=== PATIENT | female | born 1965 | race Caucasian/White ===

== ENCOUNTER → 2023-04-06 | Outpatient (CLI) | payer OTHER ==
--- NOTE | 2023-04-06 18:02 | XR ---
EXAMINATION TYPE: XR lumbar spine 2 or 3V DATE OF EXAM: 04/06/2023 CLINICAL HISTORY: pain TECHNIQUE: Three views of the lumbar spine are submitted. COMPARISON: None. FINDINGS: There are 5 lumbar type vertebral bodies identified. The lumbar spine shows satisfactory alignment w ithout evidence of acute fracture or dislocation. Vertebral body heights are within normal limits. Mild multilevel displacement with endplate sclerosis. The overlying soft tissue appears unremarkable . IMPRESSION: 1. No acute fracture or dislocation is seen in the lumbar spine. 2. Mild multilevel degenerative disc disease.
== END | disposition home or self-care (01) ==
LOC: RADXRMAIN 17:38
PROVIDERS: ATTEND Emergency Medicine
DX: S39.012A Strain of muscle, fascia and tendon of lower back, initial encounter (principal); M51.36 Other intervertebral disc degeneration, lumbar region; X58.XXXA Exposure to other specified factors, initial encounter
CPT/HCPCS: 72100

== ENCOUNTER 2024-06-09 02:58 | Emergency (ER) | payer OTHER ==
--- NOTE | 2024-06-09 03:34 | ED ---
Allergic Reaction HPI - General Chief complaint: Allergic Reaction Stated complaint: Animal Scratch, Lip Swelling Time Seen by Provider: 06/09/24 03:12 Source: patient Mode of arrival: ambulatory Limitations: no limitations - History of Present Illness Initial Comments: Patient is a previous healthy 59-year-old female presenting today for lip swelling. States that she was scratched on the lip by her pet squirrel last night at 7 PM and began noticing lip swelling. Tried to go to sleep and woke up with her lip more swollen. Does not take any medications every day. No medications prior to arrival. States only other new exposure was 2 nights ago she ate spinach cooked with [employer] seasonings and did have itching the following night, waking up yesterday morning with itching. Additionally was doing yard work outside 2 days ago and was bit by amina's on the left hip and did have hives from this. Otherwise denies any new hives, any sensation of difficulty in breathing, tongue swelling, throat swelling, shortness of breath, chest pain, abdominal pain, nausea, vomiting, diarrhea. Denies any history of allergies. No recent fevers or chills. - Related Data Previous Rx's Medication Instructions Recorded predniSONE [Deltasone] 40 mg PO DAILY #8 tab 06/09/24 Allergies Allergy/AdvReac Type Severity Reaction Status Date / Time No Known Allergies Allergy Verified 06/09/24 02:59 Review of Systems ROS Statement: Those systems with pertinent positive or pertinent negative responses have been documented in the HPI. ROS Other: All systems not noted in ROS Statement are negative. Past Medical History Past Medical History: No Reported History History of Any Multi-Drug Resistant Organisms: None Reported Past Surgical History: Section Past Psychological History: No Psychological Hx Reported Smoking Status: Current every day smoker Past Alcohol Use History: None Reported Past Drug Use History: None Reported General Exam - General Exam Comments Initial Comments: PE: CONSTITUTIONAL: [no apparent distress, well appearing] SKIN: [warm, dry, no jaundice, hives or petechiae] EYES:[ pupils are equally round, extraocular movements intact without nystagmus, clear conjunctiva, non-icteric sclera] HENT: [normocephalic, atraumatic, moist mucus membranes, oropharynx clear without exudates, no uvular swelling, no oropharyngeal edema, no tongue swelling, lower lip is mildly edematous] NECK: , [Full range of motion, normal appearance] PULMONARY: [clear to auscultation without wheezes, rhonchi, or rales, normal excursion, no accessory muscle use and no stridor] CARDIOVASCULAR:[ regular rate, rhythm, normal S1 and S2. No appreciated murmurs, rubs or gallops. Strong radial pulses with intact distal perfusion. No lower extremity edema] GASTROINTESTINAL: [soft, active bowel sounds throughout, non-tender, non- distended, no palpable masses, no rebound or guarding. No hepatosplenomegaly] GENITOURINARY: MUSCULOSKELETAL: [Extremities have no gross deformity, no edema, redness, or swelling. ] NEUROLOGIC: [_a/o x 3, GCS 15, normal mentation and speech. Moves all extremities x 4 without motor or sensory deficit] PSYCHIATRIC:[ _normal mood and affect, thought process is clear and linear] Limitations: no limitations Course Vital Signs 06/09/24 06/09/24 06/09/24 02:59 04:21 06:39 Temperature 97.9 F 97.6 F Pulse Rate 94 73 65 Respiratory 19 16 16 Rate Blood Pressure 116/76 109/77 107/72 O2 Sat by Pulse 98 98 95 Oximetry Medical Decision Making - Medical Decision Making Was pt. sent in by a medical professional or institution ([facility], PORTABLE POWER TOOL REPAIRER, urgent care, hospital, or half-way...) When possible be specific @ -[No] Did you speak to anyone other than the patient for history (EMS, parent, family, police, friend...)? What history was obtained from this source @ -[No] Did you review nursing and triage notes (agree or disagree)? Why? @ -[I reviewed and agree with nursing and triage notes] Were old charts reviewed (outside hosp., previous admission, EMS record, old EKG, old radiological studies, urgent care reports/EKG's, half-way records)? Report findings @ -[No old charts were reviewed] Differential Diagnosis (chest pain, altered mental status, abdominal pain women, abdominal pain men, vaginal bleeding, weakness, fever, dyspnea, syncope, headache, dizziness, GI bleed, back pain, seizure, CVA, palpatations, mental health, musculoskeletal)? @ -[not applicable] EKG interpreted by me (3pts min.). @ -[As above] X-rays interpreted by me (1pt min.). @ -[None done] CT interpreted by me (1pt min.). @ -[None done] U/S interpreted by me (1pt. min.). @ -[None done] What testing was considered but not performed or refused? (CT, X-rays, U/S, labs)? Why? @ -[None] What meds were considered but not given or refused? Why? @ -[None] Did you discuss the management of the patient with other professionals (professionals i.e. , PA, PORTABLE POWER TOOL REPAIRER, lab, RT, psych nurse, social services specialist, lawyer criminal, teacher, state highway police officer, assistant case manager)? Give summary @ -[No] Was smoking cessation discussed for >3mins.? @ -[No] Was critical care preformed (if so, how long)? @ -[No] Were there social determinants of health that impacted care today? How? (Homelessness, low income, unemployed, alcoholism, drug addiction, transportation, low edu. Level, literacy, decrease access to med. care, prison, rehab)? @ -[No] Was there de-escalation of care discussed even if they declined (Discuss DNR or withdrawal of care, Hospice)? @ -[No] What co-morbidities impacted this encounter? (DM, HTN, Smoking, COPD, CAD, Cancer, CVA, ARF, Chemo, Hep., AIDS, mental health diagnosis, sleep apnea, morbid obesity)? @ -[None] Was patient admitted / discharged? Hospital course, mention meds given and route, prescriptions, significant lab abnormalities, going to OR and other pertinent info. @ -Discharged- On reassessment patient's lip swelling has improved. No tongue swelling, no REGI. Patient comfortable with discharge. Will discharge home with prednisone taper. Undiagnosed new problem with uncertain prognosis? @ -[No] Drug Therapy requiring intensive monitoring for toxicity (Heparin, Nitro, Insulin, Cardizem)? @ -[No] Were any procedures done? @ -[No] Diagnosis/symptom? @ -[default] Acute, or Chronic, or Acute on Chronic? @ -[default] Uncomplicated (without systemic symptoms) or Complicated (systemic symptoms)? @ -[default] Side effects of treatment? @ -[No] Exacerbation, Progression, or Severe Exacerbation? @ -[No] Poses a threat to life or bodily function? How? (Chest pain, [place], [place], pneumonia, PE, COPD, DKA, ARF, appy, cholecystitis, CVA, Diverticulitis, Homicidal, Suicidal, threat to staff... and all critical care pts) @ -[No] Disposition Clinical Impression: Allergic reaction Disposition: HOME SELF-CARE Condition: Stable Instructions (If sedation given, give patient instructions): General Allergic Reaction (ED) Additional Instructions: Every disease is a spectrum and a small chance still exists that a serious condition could develop, for this reason, please monitor yourself closely for new, changing or worsening symptoms, symptoms that persist beyond 48 hours,, swelling of your tongue or throat, shortness of breath, wheezing, vomiting, confusion, fever, inability to tolerate/keep down fluids or your medications, i nability to follow up with outpatient providers as instructed and should you experience these symptoms or should you have any further concerns for your wellbeing please return to the ED or call 911 immediately. PLEASE call your primary care physician as soon as possible to arrange / discuss plan for followup appointment. Appointment in the next 1-3 days is strongly encouraged if possible. PLEASE let us know here before you leave if there is anything further we can do to be of any assistance. Take care and feel Better! Prescriptions: predniSONE [Deltasone] 40 mg PO DAILY #8 tab Is patient prescribed a controlled substance at d/c from ED?: No Referrals: None,Stated [Primary Care Provider] - 1-2 days
[2024-06-09] MEDS: FAMOTIDINE 20 MG/2 ML VIAL IV STA (03:39)
[2024-06-09] MEDS: methylPREDNISolone SOD SUCCI 125 MG/2 ML VIAL IV STA (03:39)
[2024-06-09] MEDS: diphenhydrAMINE 50 MG/ML 1 ML VIAL IVP STA (03:39)
[2024-06-09 07:24] VITALS: BP 99/65; PULSE 79; RESP 17; TEMP 98.4
== END 2024-06-09 07:32 | disposition home or self-care (01) ==
LOC: EC 02:58
DX: T78.1XXA Other adverse food reactions, not elsewhere classified, initial encounter (principal); F17.200 Nicotine dependence, unspecified, uncomplicated
CPT/HCPCS: 99283; 96374; 96375 ×2; J1200; J3490; J2919

== ENCOUNTER 2024-06-20 22:15 | Emergency (ER) | payer OTHER ==
[2024-06-20 22:19] VITALS: TEMP 97.7
--- NOTE | 2024-06-20 22:36 | ED ---
Allergic Reaction HPI - General Source: patient, RN notes reviewed Mode of arrival: ambulatory Limitations: no limitations <Geraldine Rodriguez - Last Filed: 06/20/24 23:21> <Chapis Gar - Last Filed: 06/21/24 00:56> - General Chief complaint: Allergic Reaction Stated complaint: Allergic reaction Time Seen by Provider: 06/20/24 22:31 - History of Present Illness Initial Comments: This is a 59-year-old female is presenting to the emergency room with for chief complaint of superior lip swelling. Patient states that approximately 4 hours prior to arrival she ate dinner and afterwards began to notice that her superior lip with swelling. Patient states that she had lesion type noodles for dinner that she has never had before. She denies tongue swelling, eyelid swelling, shortness of breath, difficulty breathing, hives, new rashes. Patient does not take any daily medications. She states that something similar happened to her a few weeks ago where she was given steroids and antihistamines with resolution of symptoms. (Geraldine Rodriguez) - Related Data Previous Rx's Medication Instructions Recorded predniSONE [Deltasone] 40 mg PO DAILY #8 tab 06/09/24 Allergies Allergy/AdvReac Type Severity Reaction Status Date / Time No Known Allergies Allergy Verified 06/20/24 22:18 Review of Systems ROS Other: All systems not noted in ROS Statement are negative. <Geraldine Rodriguez - Last Filed: 06/20/24 23:21> ROS Other: All systems not noted in ROS Statement are negative. <Chapis Gar - Last Filed: 06/21/24 00:56> ROS Statement: Those systems with pertinent positive or pertinent negative responses have been documented in the HPI. Past Medical History Past Medical History: No Reported History History of Any Multi-Drug Resistant Organisms: None Reported Past Surgical History: Section Past Psychological History: No Psychological Hx Reported Smoking Status: Current every day smoker Past Alcohol Use History: None Reported Past Drug Use History: None Reported <Geraldine Rodriguez - Last Filed: 06/20/24 23:21> General Exam Limitations: no limitations General appearance: alert, in no apparent distress Head exam: Present: atraumatic, normocephalic, normal inspection Expanded Mouth exam: Present: tongue normal, other (superior lip edema, no erythema). Absent: drooling, trismus, muffled voice, tongue elevation Throat exam: normal inspection. negative: tonsillar erythema, tonsillomegaly Neck exam: Present: normal inspection. Absent: tenderness, meningismus, lymphadenopathy Respiratory exam: Present: normal lung sounds bilaterally. Absent: respiratory distress, wheezes, rales, rhonchi, stridor Cardiovascular Exam: Present: regular rate, normal rhythm, normal heart sounds. Absent: systolic murmur, diastolic murmur, rubs, gallop, clicks GI/Abdominal exam: Present: soft, normal bowel sounds. Absent: distended, tenderness, guarding, rebound, rigid Extremities exam: Present: normal inspection, full ROM, normal capillary refill. Absent: tenderness, pedal edema, joint swelling, calf tenderness Neurological exam: Present: alert, oriented X3, CN II-XII intact <Geraldine Rodriguez - Last Filed: 06/20/24 23:21> Course Vital Signs 06/20/24 06/20/24 22:18 23:20 Temperature 97.7 F Pulse Rate 88 Respiratory 16 18 Rate Blood Pressure 114/74 O2 Sat by Pulse 98 98 Oximetry Medical Decision Making <Geraldine Rodriguez - Last Filed: 06/20/24 23:21> <Chapis Gar - Last Filed: 06/21/24 00:56> - Medical Decision Making Was pt. sent in by a medical professional or institution ([facility], SALES INSPECTOR, urgent care, hospital, or correction...) When possible be specific @ -[No] Did you speak to anyone other than the patient for history (EMS, parent, family, police, friend...)? What history was obtained from this source @ -[No] Did you review nursing and triage notes (agree or disagree)? Why? @ -[I reviewed and agree with nursing and triage notes] Were old charts reviewed (outside hosp., previous admission, EMS record, old EKG, old radiological studies, urgent care reports/EKG's, correction records)? Report findings @ -[No old charts were reviewed] Differential Diagnosis (chest pain, altered mental status, abdominal pain women, abdominal pain men, vaginal bleeding, weakness, fever, dyspnea, syncope, headache, dizziness, GI bleed, back pain, seizure, CVA, palpatations, mental health, musculoskeletal)? @ -allergic reaction, angioedema, HSV, dental abscess, neoplasm, skin trauma, this list not all inclusive EKG interpreted by me (3pts min.). @ -none X-rays interpreted by me (1pt min.). @ -[None done] CT interpreted by me (1pt min.). @ -[None done] U/S interpreted by me (1pt. min.). @ -[None done] What testing was considered but not performed or refused? (CT, X-rays, U/S, labs)? Why? @ -[None] What meds were considered but not given or refused? Why? @ -[None] Did you discuss the management of the patient with other professionals (professionals i.e. , ALE, SALES INSPECTOR, lab, RT, psych nurse, social services aide, enamel pulverizer, teacher, collections officer, case manager specialist)? Give summary @ -[No] Was smoking cessation discussed for >3mins.? @ -[No] Was critical care preformed (if so, how long)? @ -[No] Were there social determinants of health that impacted care today? How? (Homelessness, low income, unemployed, alcoholism, drug addiction, transportation, low edu. Level, literacy, decrease access to med. care, long term, rehab)? @ -[No] Was there de-escalation of care discussed even if they declined (Discuss DNR or withdrawal of care, Hospice)? DNR status @ -[No] What co-morbidities impacted this encounter? (DM, HTN, Smoking, COPD, CAD, Cancer, CVA, ARF, Chemo, Hep., AIDS, mental health diagnosis, sleep apnea, morbid obesity)? @ -[None] Was patient admitted / discharged? Hospital course, mention meds given and route, prescriptions, significant lab abnormalities, going to OR and other pertinent info. @ -59-year-old female with superior lip swelling. Patient not exhibiting signs of respiratory distress. Vitals are stable. There is mild superior lip swelling on evaluation with no evidence of tongue swelling, inferior for swelling, hives or rashes. Patient provided with allergic cocktail including steroids and antihistamines and will be monitored for potential progression of symptoms. patient is signed out to my colleague, Chapis Kulka, PA-C pending reevaluation and disposition. Undiagnosed new problem with uncertain prognosis? @ -[No] Drug Therapy requiring intensive monitoring for toxicity (Heparin, Nitro, Insulin, Cardizem)? @ -[No] Were any procedures done? @ -[No] Diagnosis/symptom? @ -[default] Acute, or Chronic, or Acute on Chronic? @ -[default] Uncomplicated (without systemic symptoms) or Complicated (systemic symptoms)? @ -[default] Side effects of treatment? @ -[No] Exacerbation, Progression, or Severe Exacerbation? @ -[No] Poses a threat to life or bodily function? How? (Chest pain, [place], [place], pneumonia, PE, COPD, DKA, ARF, appy, cholecystitis, CVA, Diverticulitis, Homicidal, Suicidal, threat to staff... and all critical care pts) @ -[No] (Geraldine Rodriguez) Patient reevaluated with improvement in symptoms. She will be discharged home. Advised to use antihistamines and follow-up with her primary care provider. She is understanding agreeable with plan. Case discussed with Dr. Howell (Chapis Gar) Disposition <Geraldine Rodriguez - Last Filed: 06/20/24 23:21> Is patient prescribed a controlled substance at d/c from ED?: No <Chapis Gar - Last Filed: 06/21/24 00:56> Clinical Impression: Allergic reaction Disposition: HOME SELF-CARE Condition: Stable Instructions (If sedation given, give patient instructions): General Allergic Reaction (ED) Additional Instructions: Please follow up with your primary care provider. Return to the emergency department for new or worsening symptoms. Referrals: None,Stated [Primary Care Provider] - 1-2 days
[2024-06-20] MEDS: FAMOTIDINE 20 MG/2 ML VIAL IV STA (22:48)
[2024-06-20] MEDS: methylPREDNISolone SOD SUCCI 125 MG/2 ML VIAL IV STA (22:48)
[2024-06-20] MEDS: diphenhydrAMINE 50 MG/ML 1 ML VIAL IVP STA (22:48)
[2024-06-21 01:34] VITALS: BP 100/64; PULSE 63; RESP 16
== END 2024-06-21 01:34 | disposition home or self-care (01) ==
LOC: EC 22:15
DX: T78.40XA Allergy, unspecified, initial encounter (principal); F17.200 Nicotine dependence, unspecified, uncomplicated
CPT/HCPCS: 99283; 96374; 96375 ×2; J1200; J3490; J2919